=== PATIENT | female | born 1960 ===

== ENCOUNTER → 2022-05-27 | Outpatient (CLI) | payer OTHER | LOC: LAB SHORT 12:19 → LAB 12:19 | DX: C56.9 Malignant neoplasm of unspecified ovary (principal) | CPT/HCPCS: 86304 ==

== ENCOUNTER 2023-03-17 06:02 | Day surgery (SDC) | payer OTHER ==
[~2023-03-17] VITALS: Ht 170.2 cm; Wt 77.7 kg
[2023-03-17] VITALS (10 sets, daily range): BP systolic 108–128; BP diastolic 68–79
[~2023-03-17 06:02] MED LIST: DEXA4 PO; FENTANYL1 EA11 TOP; LIVALO2 MG PO; METF500 PO; NYSTRIT TOP; ONDA8 PO; OXYC5; PSEU120ER; TRANSDERM-SCOP1 EAC2 TD
[2023-03-17] MEDS ORDERED: DOC250 PO (06:52)
--- NOTE | 2023-03-17 07:52 | NUR ---
PRE-OP NOTE PT A&OX4, BREATHING RA, CALM, AT BEDSIDE, NO ACUTE CONCERNS. Ambulatory in Day Surgery Patient confirms NPO status and agrees with scheduled surgery. Patient States Post-Procedure ride home has been arranged.PT BELONGINGS STOWED BELOW STRETCHER. GOLD RINGS X2 TAPED TO R HAND.
--- NOTE | 2023-03-17 10:06 | NUR ---
Patient up to Ambulate independently. Gait steady. Discharge instructions reviewed with patient. Patient verbalizes understanding. Copy given to patient to take home, [facility]. Patient States Post-Procedure ride home has been arranged. Discharged via wheelchair to private car for ride home.
== END 2023-03-17 10:06 | disposition home or self-care (01) ==
LOC: ORSCMMR 06:02 → ORD 10:00 → ORSCMMR 10:06
PROVIDERS: Surgery
PROC: 0JH63WZ Insertion of Totally Implantable Vascular Access Device into Chest Subcutaneous Tissue and Fascia, Percutaneous Approach (ICD-10-PCS; principal; 2023-03-17 08:00)
PROC: B544ZZA Ultrasonography of Left Jugular Veins, Guidance (ICD-10-PCS; principal; 2023-03-17 08:00)
PROC: 05HN33Z Insertion of Infusion Device into Left Internal Jugular Vein, Percutaneous Approach (ICD-10-PCS; principal; 2023-03-17 08:00)
DX: C56.1 Malignant neoplasm of right ovary (principal); Z87.891 Personal history of nicotine dependence
CPT/HCPCS: 77001; C1788; J0690; J1100; J1642; J2371; J2405; J2704; J3010; J7120